=== PATIENT | female | born 1995 | race Two or more races ===

== ENCOUNTER 2025-05-02 09:24 | Outpatient (CLI) | payer OTHER | END 2025-05-02 09:26 | disposition home or self-care (01) | LOC: SONOGRAMA 09:24 | PROVIDERS: ATTEND Internal Medicine Rheumatology | DX: M06.4 Inflammatory polyarthropathy (principal); M15.0 Primary generalized (osteo)arthritis ==

== ENCOUNTER 2025-05-15 07:06 | Outpatient (CLI) | payer OTHER | END 2025-05-15 07:09 | disposition home or self-care (01) | LOC: NUCLEAR 07:06 | PROVIDERS: ATTEND Internal Medicine Rheumatology | DX: M06.4 Inflammatory polyarthropathy (principal) ==